=== PATIENT | female | born 1985 | race Caucasian/White ===

== ENCOUNTER 2016-12-16 04:01 | Emergency (ER) | payer OTHER | END 2016-12-16 05:30 | disposition home or self-care (01) | LOC: ER 04:01 | DX: M54.5 Low back pain (principal); G89.29 Other chronic pain; M54.16 Radiculopathy, lumbar region; F17.210 Nicotine dependence, cigarettes, uncomplicated; Z79.899 Other long term (current) drug therapy | CPT/HCPCS: 96374; 96375; 99070; 99282-25; J1170 ==

== ENCOUNTER 2017-06-13 18:01 | Emergency (ER) | payer OTHER | END 2017-06-13 22:05 | disposition left against medical advice (07) | LOC: ER 18:01 | DX: Z53.21 Procedure and treatment not carried out due to patient leaving prior to being seen by health care provider (principal) | CPT/HCPCS: 99211 ==